=== PATIENT | female | born 1945 | race Two or more races ===

== ENCOUNTER 2019-09-04 16:03 | Inpatient (IN) | payer MEDICARE, MEDICAID ==
[~2019-09-04] VITALS: Ht 167.6 cm; Wt 77.1 kg
--- NOTE | 2019-09-04 16:10 | NUR ---
ED Nurse Note: patient brought into ED from home by ambulance RA [id number] due to weakness and dizziness and diaphoretic and sweaty, 40 minutes prior to arrival. 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 patient denies passing out. daughter at bedside.
[2019-09-04 16:14] VITALS: BP 114/50
--- NOTE | 2019-09-04 16:50 | NUR ---
ED Nurse Note: patient taken to CT scan.
--- NOTE | 2019-09-04 17:10 | Diagnostic Imaging Report ---
History: DIZZY Exam: CT HEAD Without Contrast Technique more: CTDI is 53.40 mGy and DLP is 948.30 mGy-cm. Technique more: One or more of the following dose reduction techniques were used: automated exposure control, adjustment of the mA and/or kV according to patient size, use of iterative reconstruction technique. 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 No intracranial hemorrhage or CT evidence of acute infarct. The ventricles are within limits and midline. The visualized paranasal sinuses, mastoids and orbits appear within limits. 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 No intracranial hemorrhage or CT evidence of acute infarct.
[2019-09-04 17:17] LABS: BASOPHILS % (AUTO) 0.9 % (0.0-2.0); EOSINOPHILS % (AUTO) 0.4 % (0.0-3.0); HEMATOCRIT 40.9 % (37.0-47.0); HEMOGLOBIN 13.9 G/DL (12.0-16.0); LYMPHOCYTES % (AUTO) 24.6 % (20.0-45.0); MEAN CORPUSCULAR VOLUME 89 FL (80-99); MONOCYTES % (AUTO) 4.4 % (1.0-10.0); NEUTROPHILS % (AUTO) 69.7 % (45.0-75.0); PLATELET COUNT 249 K/UL (150-450); RED BLOOD COUNT 4.58 M/UL (4.20-5.40); RED CELL DISTRIBUTION WIDTH 12.3 % (11.6-14.8); WHITE BLOOD COUNT 13.9 K/UL (4.8-10.8)
[2019-09-04 17:34] LABS: ALANINE AMINOTRANSFERASE 23 U/L (12-78); ALBUMIN 3.7 G/DL (3.4-5.0); ALKALINE PHOSPHATASE 58 U/L (46-116); ANION GAP 14 mmol/L (5-15); ASPARTATE AMINO TRANSFERASE 26 U/L (15-37); BILIRUBIN,TOTAL 0.5 MG/DL (0.2-1.0); BLOOD UREA NITROGEN 7 mg/dL (7-18); CALCIUM 8.5 MG/DL (8.5-10.1); CARBON DIOXIDE 27 MMOL/L (21-32); CHLORIDE 88 MMOL/L (98-107); CREATININE 0.8 MG/DL (0.55-1.30); SODIUM 128 MMOL/L (136-145)
[2019-09-04 17:35] LABS: POTASSIUM 2.6 MMOL/L (3.5-5.1)
[2019-09-04] MEDS: NS w/KCl 40mEq 1,000 ML IV SCH (17:53)
--- NOTE | 2019-09-04 18:29 | Emergency Room Report ---
History of Present Illness General Chief Complaint: Generalized Weakness Source: Patient Present Illness HPI 73-year-old female presents for dizziness. Brought in by EMS from home. Daughter states that patient was feeling dizzy today lasted for several minutes and subsided. States that she feels better. Daughter states that patient has hypertension and is recently changed her blood pressure medication. Denies chest pain or shortness of breath. Denies fevers or chills. No other aggravating relieving factors. Denies any other associated symptoms Allergies: Coded Allergies: No Known Allergies (Unverified , 09/04/19) COVID-19 Screening Contact w/high risk pt: No Recent Travel to affected area: No Experienced COVID-19 symptoms?: No COVID-19 Testing performed DAIRY CHEMIST: No Patient History Past Medical History: HTN Past Surgical History: none Pertinent Family History: none Social History: Denies: smoking, alcohol use, drug use Now: No Immunizations: UTD Reviewed Nursing Documentation: PMH: Agreed; PSxH: Agreed Nursing Documentation-PMH Hx Hypertension: Yes Review of Systems All Other Systems: negative except mentioned in HPI Physical Exam Vital Signs Date Time Temp Pulse Resp B/P (MAP) Pulse Ox O2 Delivery O2 Flow Rate FiO2 09/04/19 15:59 97.3 69 19 100/80 (87) 97 Room Air Sp02 EP Interpretation: reviewed, normal General Appearance: no apparent distress, alert, GCS 15, non-toxic Head: normocephalic, atraumatic Eyes: bilateral eye normal inspection, bilateral eye PERRL ENT: hearing grossly normal, normal pharynx, no angioedema, normal voice Neck: full range of motion, supple/symm/no masses Respiratory: chest non-tender, lungs clear, normal breath sounds, speaking full sentences Cardiovascular #1: regular rate, rhythm, no edema Cardiovascular #2: 2+ carotid (R), 2+ carotid (L), 2+ radial (R), 2+ radial (L) , 2+ dorsalis pedis (R), 2+ dorsalis pedis (L) Gastrointestinal: normal bowel sounds, non tender, soft, non-distended, no guarding, no rebound Rectal: deferred Genitourinary: normal inspection, no CVA tenderness Musculoskeletal: back normal, normal range of motion, gait/station normal, non- tender Neurologic: alert, motor strength/tone normal, oriented x3, sensory intact, responsive, speech normal Psychiatric: judgement/insight normal, memory normal, mood/affect normal, no suicidal/homicidal ideation Reflexes: 3+ bicep (R), 3+ bicep (L), 3+ tricep (R), 3+ tricep (L), 3+ knee (R) , 3+ knee (L) Skin: other - See nursing skin notes Lymphatic: no adenopathy Medical Decision Making Diagnostic Impression: Primary Impression: Episode of generalized weakness Additional Impressions: Hypokalemia Hyponatremia Dizziness ER Course Hospital Course 73-year-old female presents with dizziness and weakness Differential diagnoses include: GA/unstable angina, arrythmia, dehydration, CVA/ TIA Clinical course Patient placed on stretcher. on plodding operator. 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 States that patient has had this mass for many years now. Has been told not a candidate for surgery Given IV fluids. Given potassium Case discussed with Dr. Rogers and he agreed to accept the patient to his service for further care and support I. I feel this is a highly complex case requiring extensive working including EKG/Rhythm strip, Xray/CT/US, Blood/urine lab work, repeat exams while in ED, and administration of strong opiates/narcotics for pain control, admission to hospital or close patient follow up. Diagnosis -episode of generalized weakness, hypokalemia, hyponatremia, dizziness admitted to telemetry in serious condition Labs Test 09/04/19 16:55 White Blood Count 13.9 K/UL (4.8-10.8) Red Blood Count 4.58 M/UL (4.20-5.40) Hemoglobin 13.9 G/DL (12.0-16.0) Hematocrit 40.9 % (37.0-47.0) Mean Corpuscular Volume 89 FL (80-99) Mean Corpuscular Hemoglobin 30.3 PG (27.0-31.0) Mean Corpuscular Hemoglobin Concent 34.0 G/DL (32.0-36.0) Red Cell Distribution Width 12.3 % (11.6-14.8) Platelet Count 249 K/UL (150-450) Mean Platelet Volume 8.9 FL (6.5-10.1) Neutrophils (%) (Auto) 69.7 % (45.0-75.0) Lymphocytes (%) (Auto) 24.6 % (20.0-45.0) Monocytes (%) (Auto) 4.4 % (1.0-10.0) Eosinophils (%) (Auto) 0.4 % (0.0-3.0) Basophils (%) (Auto) 0.9 % (0.0-2.0) Sodium Level 128 MMOL/L (136-145) Potassium Level 2.6 MMOL/L (3.5-5.1) Chloride Level 88 MMOL/L (98-107) Carbon Dioxide Level 27 MMOL/L (21-32) Anion Gap 14 mmol/L (5-15) Blood Urea Nitrogen 7 mg/dL (7-18) Creatinine 0.8 MG/DL (0.55-1.30) Estimat Glomerular Filtration Rate > 60 mL/min (>60) Glucose Level 216 MG/DL (74-106) Calcium Level 8.5 MG/DL (8.5-10.1) Total Bilirubin 0.5 MG/DL (0.2-1.0) Aspartate Amino Transf (AST/SGOT) 26 U/L (15-37) Alanine Aminotransferase (ALT/SGPT) 23 U/L (12-78) Alkaline Phosphatase 58 U/L (46-116) Troponin I 0.007 ng/mL (0.000-0.056) Pro-B-Type Natriuretic Peptide 362 pg/mL (0-125) Total Protein 7.5 G/DL (6.4-8.2) Albumin 3.7 G/DL (3.4-5.0) Globulin 3.8 g/dL Albumin/Globulin Ratio 1.0 (1.0-2.7) EKG Diagnostic Results Rate: normal Rhythm: NSR ST Segments: other - LBBB ASA given to the pt in ED: No Rhythm Strip Diag. Results EP Interpretation: yes Rhythm: NSR, no PVC's, no ectopy Chest X-Ray Diagnostic Results Chest X-Ray Diagnostic Results : Chest X-Ray Ordered: Yes # of Views/Limited/Complete: 1 View Indication: Other - dizziness EP Interpretation: Yes Interpretation: no consolidation, no effusion, no pneumothorax, no acute cardiopulmonary disease Impression: No acute disease Electronically Signed by: Electronically signed by Darek Cabral MD CT/MRI/US Diagnostic Results CT/MRI/US Diagnostic Results : Imaging Test Ordered: CT Head Impression Procedure: CT Head no Contrast History: DIZZY Exam: CT HEAD Without Contrast Technique more: CTDI is 53.40 mGy and DLP is 948.30 mGy-cm. Technique more: One or more of the following dose reduction techniques were used: automated exposure control, adjustment of the mA and/or kV according to patient size, use of iterative reconstruction technique. 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 No intracranial hemorrhage or CT evidence of acute infarct. The ventricles are within limits and midline. The visualized paranasal sinuses, mastoids and orbits appear within limits. 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 No intracranial hemorrhage or CT evidence of acute infarct. Last Vital Signs Date Time Temp Pulse Resp B/P (MAP) Pulse Ox O2 Delivery O2 Flow Rate FiO2 09/04/19 16:14 97.3 86 19 114/50 96 Room Air Status: improved Disposition: ADMITTED INPATIENT Condition: Serious Referrals: NON PHYSICIAN (PCP) Darek Cabral MD Sep 04, 2019 18:29
--- NOTE | 2019-09-04 19:06 | NUR ---
HAND-OFF: Report given to Chu RN.ED Nurse Note:
--- NOTE | 2019-09-04 19:07 | NUR ---
ED Nurse Note: Report received from Michaela HAMMOND.
--- NOTE | 2019-09-04 19:10 | NUR ---
ED Nurse Note: Spoke to Ekta shoe caser and updated her of patient/relatives decision to transfer.
[2019-09-04 19:24] VITALS: BP 108/51
--- NOTE | 2019-09-04 20:43 | NUR ---
ED Nurse Note: Repeat K blood test withdrawn and sent
[2019-09-04 20:52] VITALS: BP 92/52
--- NOTE | 2019-09-04 20:53 | NUR ---
ED Nurse Note: Bp 92/50, patient is asymptomatic and resting in bed. Placed on trendelenburg position. ERMD notified
--- NOTE | 2019-09-04 21:29 | NUR ---
ED Nurse Note: BP 105/58 after infusing [id number] bolus.
[2019-09-04 21:31] VITALS: BP 105/52
--- NOTE | 2019-09-04 23:00 | NUR ---
ED Nurse Note: Report given to Benjamin HAMMOND
--- NOTE | 2019-09-04 23:15 | NUR ---
TRANSFER TO FLOOR: Patient transferred to Tele at 203-2 accompanied by RN via timoteo with air sampling and monitoring. Patient transported safely to the room. Belongings given to RN. Endorsed to RN on duty
[2019-09-05] VITALS: BP 101/45
--- NOTE | 2019-09-05 | NUR ---
NURSE NOTES: Pt arrived on unit from ER. Got report from Zeyad HAMMOND. Pt is from home accompanied by daughter who brought pt to hospital. Pt here for dizziness/hypokalemia. Initial assessment done. Pt is fully alert primarily Nauruan speaking. Pt is ambulatory but is weak sba needed uses bedside commode. Pt denies any pain. Denies any n/v or SOB. VS BP:101/45 T:97.9 HR:88 R:20 O2:98% on room air. No skin issues noted. Pt has L AC 20g w/ NSw/KCl 40 mEQ @100mL/hr. monitoring and evaluation advisor placed on pt running NSR w/BBB. No s/s of distress or discomfort noted. Pt resting in bed comfortable. Bed in low and locked position, call light within reach, bedside table within reach. Continue to monitor.
[2019-09-05 04:00] VITALS: BP 105/55
[2019-09-05] MEDS ORDERED: Morphine Sulfate 2mg/ml Inj(IV/IM USE ONLY) IVP PRN (04:00)
[2019-09-05] MEDS: NS w/KCl 40mEq 1,000 ML IV SCH (04:13)
--- NOTE | 2019-09-05 06:21 | Consultation ---
History of Present Illness General Chief Complaint: Generalized Weakness Present Illness Allergies: Coded Allergies: No Known Allergies (Unverified , 09/04/19) Patient History Healthcare decision maker Resuscitation status Advanced Directive on File Physical Exam Last 24 Hour Vital Signs Date Time Temp Pulse Resp B/P (MAP) Pulse Ox O2 Delivery O2 Flow Rate FiO2 09/05/19 04:00 94 09/05/19 04:00 97.7 85 18 105/55 (72) 97 09/05/19 01:31 Room Air 09/05/19 00:07 Room Air 09/05/19 00:00 97.9 88 20 101/45 (63) 98 09/05/19 00:00 80 09/04/19 23:37 98.0 82 20 110/78 98 Room Air 80 09/04/19 21:31 98.1 80 20 105/52 98 Room Air 82 80 09/04/19 20:52 98.0 80 18 92/52 98 Room Air 87 09/04/19 19:24 98.0 87 18 108/51 98 Room Air 09/04/19 16:14 97.3 86 19 114/50 96 Room Air 09/04/19 16:12 69 19 Room Air 09/04/19 15:59 97.3 69 19 100/80 (87) 97 Room Air Intake and Output 09/04/19 09/05/19 19:00 07:00 # Voids 2 Laboratory Tests Test 09/04/19 16:55 09/04/19 20:40 White Blood Count 13.9 K/UL (4.8-10.8) H Red Blood Count 4.58 M/UL (4.20-5.40) Hemoglobin 13.9 G/DL (12.0-16.0) Hematocrit 40.9 % (37.0-47.0) Mean Corpuscular Volume 89 FL (80-99) Mean Corpuscular Hemoglobin 30.3 PG (27.0-31.0) Mean Corpuscular Hemoglobin Concent 34.0 G/DL (32.0-36.0) Red Cell Distribution Width 12.3 % (11.6-14.8) Platelet Count 249 K/UL (150-450) Mean Platelet Volume 8.9 FL (6.5-10.1) Neutrophils (%) (Auto) 69.7 % (45.0-75.0) Lymphocytes (%) (Auto) 24.6 % (20.0-45.0) Monocytes (%) (Auto) 4.4 % (1.0-10.0) Eosinophils (%) (Auto) 0.4 % (0.0-3.0) Basophils (%) (Auto) 0.9 % (0.0-2.0) Sodium Level 128 MMOL/L (136-145) L Potassium Level 2.6 MMOL/L (3.5-5.1) *L 2.7 MMOL/L (3.5-5.1) *L Chloride Level 88 MMOL/L (98-107) L Carbon Dioxide Level 27 MMOL/L (21-32) Anion Gap 14 mmol/L (5-15) Blood Urea Nitrogen 7 mg/dL (7-18) Creatinine 0.8 MG/DL (0.55-1.30) Estimat Glomerular Filtration Rate > 60 mL/min (>60) Glucose Level 216 MG/DL (74-106) H Calcium Level 8.5 MG/DL (8.5-10.1) Total Bilirubin 0.5 MG/DL (0.2-1.0) Aspartate Amino Transf (AST/SGOT) 26 U/L (15-37) Alanine Aminotransferase (ALT/SGPT) 23 U/L (12-78) Alkaline Phosphatase 58 U/L (46-116) Troponin I 0.007 ng/mL (0.000-0.056) Pro-B-Type Natriuretic Peptide 362 pg/mL (0-125) H Total Protein 7.5 G/DL (6.4-8.2) Albumin 3.7 G/DL (3.4-5.0) Globulin 3.8 g/dL Albumin/Globulin Ratio 1.0 (1.0-2.7) Height (Feet): 5 Height (Inches): 6.00 Weight (Pounds): 170 Medications Current Medications Medications (Trade) Dose Ordered Sig/Chris Route PRN Reason Start Time Stop Time Status Last Admin Dose Admin Acetaminophen (Tylenol) 650 mg Q6HR PRN ORAL TEMP>100.5 09/04/19 22:30 Morphine Sulfate (Morphine Sulfate) 2 mg Q4H PRN IVP For Pain 09/05/19 04:00 09/12/19 03:59 Ondansetron HCl (Zofran) 4 mg Q6HR PRN IVP Nausea & Vomiting 09/04/19 22:30 Potassium Chloride/Sodium Chloride 1,000 ml @ 100 mls/hr Q10H IV 09/04/19 18:00 10/04/19 17:59 09/05/19 04:13 Assessment/Plan Assessment/Plan: Oncology Consultation REQ MD Micheal Rogers RFC: suprasellar mass DOS 09/05/2019 ID 73-year-old female presents for dizziness. Brought in by EMS from home. Daughter states that patient was feeling dizzy today lasted for several minutes and subsided. States that she feels better. Daughter states that patient has hypertension and is recently changed her blood pressure medication. Denies chest pain or shortness of breath. Denies fevers or chills. No other aggravating relieving factors. Denies any other associated symptoms, is ethiopeian speaking and ct imaging brain reviewed, thus onco consulted. Allergies: No Known Allergies (Unverified , 09/04/19) COVID-19 Screening Contact w/high risk pt: No Recent Travel to affected area: No Experienced COVID-19 symptoms?: No COVID-19 Testing performed STICKER MACHINE OPERATOR: No Patient History Past Medical History: HTN Past Surgical History: none Pertinent Family History: none Social History: Denies: smoking, alcohol use, drug use Now: No Immunizations: UTD Reviewed Nursing Documentation: PMH: Agreed; PSxH: Agreed Review of Systems All Other Systems: negative except mentioned in HPI PE Vitals: reviewed, normal General Appearance: no apparent distress, non-toxic Heent: hearing grossly normal, normal pharynx, no angioedema, normal voice Resp: chest non-tender, lungs clear, normal breath sounds Cardiovascular: regular rate, rhythm, no edema GI: normal bowel sounds, non tender, soft Rectal: deferred Genitourinary: normal inspection, no CVA tenderness Musculoskeletal: back normal, normal range of motion Skin: other - See nursing skin notes Labs: noted Imaging EKG- NSR, LBBB interpreted by me Chest x-ray- no acute process 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 --> is likely contributing to nausea, dizziness, symptoms --> consider to obtain neuro eval as well as potential neurosurgical resection --> as per neuro consider to send for prolactin, IGF-I (to examine possible GH excess), TSH, and free T4 (to check for central hyperthyroidism) --> Also for hypercortisolism 24-hour urine-free cortisol, and the overnight (1 mg) dexamethasone suppression test potential tests --> given larger than 10mm, then surgical approach to be considered # Leukocytosis likely reactive to above process --> r/o infection, cxr cultures --> per id --> smear is noted # Episode of generalized weakness # Hypokalemia # Hyponatremia # Dizziness # Dehydration --> per renal, ivfs Appreciate consultation and dw Eric Nelson MD Sep 05, 2019 06:21
[2019-09-05 07:09] LABS: ALANINE AMINOTRANSFERASE 20 U/L (12-78); ALBUMIN 3.2 G/DL (3.4-5.0); ALBUMIN/GLOBULIN RATIO 0.9 (1.0-2.7); ALKALINE PHOSPHATASE 51 U/L (46-116); ANION GAP 9 mmol/L (5-15); ASPARTATE AMINO TRANSFERASE 18 U/L (15-37); BILIRUBIN,TOTAL 0.5 MG/DL (0.2-1.0); BLOOD UREA NITROGEN 4 mg/dL (7-18); CALCIUM 8.4 MG/DL (8.5-10.1); CARBON DIOXIDE 27 MMOL/L (21-32); CHLORIDE 100 MMOL/L (98-107); CREATININE 0.7 MG/DL (0.55-1.30); POTASSIUM 3.4 MMOL/L (3.5-5.1); SODIUM 136 MMOL/L (136-145)
[2019-09-05 07:20] LABS: BASOPHILS % (AUTO) 0.6 % (0.0-2.0); EOSINOPHILS % (AUTO) 0.3 % (0.0-3.0); HEMATOCRIT 41.6 % (37.0-47.0); HEMOGLOBIN 13.7 G/DL (12.0-16.0); LYMPHOCYTES % (AUTO) 23.9 % (20.0-45.0); MEAN CORPUSCULAR VOLUME 91 FL (80-99); MONOCYTES % (AUTO) 5.8 % (1.0-10.0); NEUTROPHILS % (AUTO) 69.4 % (45.0-75.0); PLATELET COUNT 267 K/UL (150-450); RED BLOOD COUNT 4.55 M/UL (4.20-5.40); RED CELL DISTRIBUTION WIDTH 11.5 % (11.6-14.8); WHITE BLOOD COUNT 10.6 K/UL (4.8-10.8)
--- NOTE | 2019-09-05 07:40 | NUR ---
HAND-OFF: Report given to Yahaira HAMMOND.
[2019-09-05 08:00] VITALS: BP 107/53
--- NOTE | 2019-09-05 08:30 | NUR ---
NURSE NOTES: Received report from STEPHANY Alexander. Pt A/O x4. No s/s of acute respiratory and cardiac disease. Currently on room air. IVF currently running on left AC 20G, patent and asymptomatic. Bed in low position, side rails up x2 and call light within reach. Will continue to monitor.
--- NOTE | 2019-09-05 09:50 | Cardiac Electrophysiology PN ---
Subjective Subjective [id number] Objective Last 24 Hour Vital Signs Date Time Temp Pulse Resp B/P (MAP) Pulse Ox O2 Delivery O2 Flow Rate FiO2 09/05/19 08:00 97.6 89 20 107/53 (71) 96 09/05/19 04:00 94 09/05/19 04:00 97.7 85 18 105/55 (72) 97 09/05/19 01:31 Room Air 09/05/19 00:07 Room Air 09/05/19 00:00 97.9 88 20 101/45 (63) 98 09/05/19 00:00 80 09/04/19 23:37 98.0 82 20 110/78 98 Room Air 80 09/04/19 21:31 98.1 80 20 105/52 98 Room Air 82 80 09/04/19 20:52 98.0 80 18 92/52 98 Room Air 87 09/04/19 19:24 98.0 87 18 108/51 98 Room Air 09/04/19 16:14 97.3 86 19 114/50 96 Room Air 09/04/19 16:12 69 19 Room Air 09/04/19 15:59 97.3 69 19 100/80 (87) 97 Room Air Intake and Output 09/04/19 09/05/19 19:00 07:00 # Voids 2 Laboratory Tests Test 09/04/19 16:55 09/04/19 20:40 09/05/19 05:42 White Blood Count 13.9 K/UL (4.8-10.8) H 10.6 K/UL (4.8-10.8) Red Blood Count 4.58 M/UL (4.20-5.40) 4.55 M/UL (4.20-5.40) Hemoglobin 13.9 G/DL (12.0-16.0) 13.7 G/DL (12.0-16.0) Hematocrit 40.9 % (37.0-47.0) 41.6 % (37.0-47.0) Mean Corpuscular Volume 89 FL (80-99) 91 FL (80-99) Mean Corpuscular Hemoglobin 30.3 PG (27.0-31.0) 30.1 PG (27.0-31.0) Mean Corpuscular Hemoglobin Concent 34.0 G/DL (32.0-36.0) 32.9 G/DL (32.0-36.0) Red Cell Distribution Width 12.3 % (11.6-14.8) 11.5 % (11.6-14.8) L Platelet Count 249 K/UL (150-450) 267 K/UL (150-450) Mean Platelet Volume 8.9 FL (6.5-10.1) 9.4 FL (6.5-10.1) Neutrophils (%) (Auto) 69.7 % (45.0-75.0) 69.4 % (45.0-75.0) Lymphocytes (%) (Auto) 24.6 % (20.0-45.0) 23.9 % (20.0-45.0) Monocytes (%) (Auto) 4.4 % (1.0-10.0) 5.8 % (1.0-10.0) Eosinophils (%) (Auto) 0.4 % (0.0-3.0) 0.3 % (0.0-3.0) Basophils (%) (Auto) 0.9 % (0.0-2.0) 0.6 % (0.0-2.0) Sodium Level 128 MMOL/L (136-145) L 136 MMOL/L (136-145) Potassium Level 2.6 MMOL/L (3.5-5.1) *L 2.7 MMOL/L (3.5-5.1) *L 3.4 MMOL/L (3.5-5.1) L Chloride Level 88 MMOL/L (98-107) L 100 MMOL/L (98-107) Carbon Dioxide Level 27 MMOL/L (21-32) 27 MMOL/L (21-32) Anion Gap 14 mmol/L (5-15) 9 mmol/L (5-15) Blood Urea Nitrogen 7 mg/dL (7-18) 4 mg/dL (7-18) L Creatinine 0.8 MG/DL (0.55-1.30) 0.7 MG/DL (0.55-1.30) Estimat Glomerular Filtration Rate > 60 mL/min (>60) > 60 mL/min (>60) Glucose Level 216 MG/DL (74-106) H 161 MG/DL (74-106) H Calcium Level 8.5 MG/DL (8.5-10.1) 8.4 MG/DL (8.5-10.1) L Total Bilirubin 0.5 MG/DL (0.2-1.0) 0.5 MG/DL (0.2-1.0) Aspartate Amino Transf (AST/SGOT) 26 U/L (15-37) 18 U/L (15-37) Alanine Aminotransferase (ALT/SGPT) 23 U/L (12-78) 20 U/L (12-78) Alkaline Phosphatase 58 U/L (46-116) 51 U/L (46-116) Troponin I 0.007 ng/mL (0.000-0.056) 0.018 ng/mL (0.000-0.056) Pro-B-Type Natriuretic Peptide 362 pg/mL (0-125) H Total Protein 7.5 G/DL (6.4-8.2) 6.9 G/DL (6.4-8.2) Albumin 3.7 G/DL (3.4-5.0) 3.2 G/DL (3.4-5.0) L Globulin 3.8 g/dL 3.7 g/dL Albumin/Globulin Ratio 1.0 (1.0-2.7) 0.9 (1.0-2.7) L Thyroid Stimulating Hormone (TSH) 1.725 uiU/mL (0.358-3.740) Free Thyroxine 1.12 NG/DL (0.76-1.46) Prolactin Pending Insulin-like Growth Factor I Pending Reynaldo Alberto MD Sep 05, 2019 09:50
--- NOTE | 2019-09-05 10:13 | Diagnostic Imaging Report ---
Procedure: XRAY Chest 1v Reason for study: Dizziness. Cough. Comparison films: None. FINDINGS: There is a cardiac pacer in place. Vascularity is normal. The lung nam are clear bilaterally. Cardiac and mediastinal silhouette are within normal limits. CP angles are sharp. The bony thorax appear unremarkable. IMPRESSION: NO ACUTE CARDIOPULMONARY DISEASE.
--- NOTE | 2019-09-05 10:38 | Consultation ---
Consult Note Consult Note I was asked to evaluate the patient at the request of Dr. Micheal Rogers for electrolyte abnormalities and fluid management 73-year-old female presents for dizziness. Brought in by EMS from home. Daughter states that patient was feeling dizzy today lasted for several minutes and subsided. States that she feels better. Daughter states that patient has hypertension and is recently changed her blood pressure medication. Denies chest pain or shortness of breath. Denies fevers or chills. No other aggravating relieving factors. Denies any other associated symptoms No Known Allergies (Unverified , 09/04/19) COVID-19 Screening Contact w/high risk pt: No Recent Travel to affected area: No Experienced COVID-19 symptoms?: No COVID-19 Testing performed TIRE SERVICER: No Past Medical History: HTN Hx Hypertension: Yes, sellar mass with suprasellar extension , known and old condition Patient does not speak Belizean could not be interviewed Data reviewed Patient examined Assessment/Plan Hypokalemia, hyponatremia on admission. 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 Most likely contributing to nausea and dizziness Reactive leukocytosis Hydrate Monitor renal parameters Adjust blood pressure medications as the patient somewhat hypotensive Per orders Per consultants, discussed with news writer Sergei Guzman MD Sep 05, 2019 10:38
--- NOTE | 2019-09-05 10:51 | NUR ---
*-* NO INSURANCE INFORMATION IN THE BAR UNABLE TO SEND CLINICAL OR REVIEWS *-*
[2019-09-05 12:00] VITALS: BP 104/53
[2019-09-05] MEDS ORDERED: Docusate 100mg cap ORAL SCH (13:00)
--- NOTE | 2019-09-05 13:34 | NUR ---
CASE MANAGEMENT:REVIEW 73 YR OLD FEMALE BIBA FROM HOME CC; GENERALIZED WEAKNESS SI: DIZZINESS. HYPOKALEMIA.GENERALIZED WEAKNESS 97.3 69 19 100/80 97% ON RA WBC+13.9 NA-128 K-2.6 IS: 500CC NS BOLUS X2 IVF+KCL IV PEPCID PO KCL CT HEAD CHEST XRAY : TO TELEMETRY UNIT DCP: FROM HOME
--- NOTE | 2019-09-05 13:59 | NUR ---
TRANSFER UPDATE RECEIVED CALL FROM REFINERY OPERATOR HELPER WITH [facility] STATING THEY NEVER GAVE AUTHORIZATION TO ADMIT THIS PATIENT. [facility] IS GOING TO CALL DR DONOVAN FOR MD TO MD CONVERSATION.PHON NUMBER WAS PROVIDED THIS REFINERY OPERATOR HELPER LEFT A DETAILED MESSAGE FOR DR DONOVAN INCLUDING THE PHONE NUMBER FOR THE HEALTH PLAN'S PHYSICIAN DR PELAEZ T: [phone] Addendum: 09/05/19 at 1411 by TERRI OSHEA LVN LVN DR DONOVAN RESPONDED AND GAVE ORDER TO TRANSFER PATIENT DISCHARGE/TRANSFER ORDER ENTERED UNDER OTHER NURSING ORDERS Addendum: 09/05/19 at 1540 by TERRI OSHEA LVN LVN SPOKE WITH [facility] KAY T: [phone] PHYSICIANS HAVEN'T SPOKEN YET INFORMED KAY THAT WE HAD A ORDER TO TRANSFER TO CONTRACTED FACILITY, [facility] PROVIDED KAY WITH PATIENT'S ROOM NUMBER AND NUMBER TO NURSES STATION
[2019-09-05 16:00] VITALS: BP 112/58
--- NOTE | 2019-09-05 16:28 | NUR ---
*-* INSURANCE *-* ALL AVAILABLE CLINICALS HAVE BEEN FAXED TO: [facility] Ref#[id number] CM: Manish ph# [phone] ext [phone] fax [phone] & KENNY Ref# [id number] ph#[phone] fax#[phone]
--- NOTE | 2019-09-05 18:03 | NUR ---
NURSE NOTES: Pt needed to be transferred to [facility] due to insurance reason. Informed patient and daughter and they don't want to be transferred to [facility] and be discharged instead. Spoke with Dr. Isaac and he spoke with the patient's daughter. He wants clearance from Cuprous Chloride Operator first before discharge. Spoke with Dr. Guzman and he cleared pt to be discharged or transferred. Informed Dr. Isaac and he ordered for pt to be discharged home. Will continue with discharge papers.
--- NOTE | 2019-09-05 19:23 | NUR ---
NURSE NOTES: Pt discharge home. Removed saline lock and telemetry box. No s/s of acute respiratory and cardiac distress. Pt picked up by daughter via private vehicle.
--- NOTE | 2019-09-05 20:00 | Consultation ---
DATE OF CONSULTATION: 09/05/2019 CARDIOLOGY CONSULTATION REFERRING PHYSICIAN: Micheal Rogers D.O. REASON FOR CONSULTATION: Dizziness in a patient with electrolyte abnormality as well as hypertension and pacemaker. HISTORY OF PRESENT ILLNESS: The patient is a 73-year-old lady with history of hypertension and history of Medtronic pacemaker about 2 years ago as well as underlying left bundle-branch block, who was brought in by paramedics from home as daughter stated that the patient has been feeling dizzy. The patient's blood pressure medication was recently changed. The patient denies any chest pain or shortness of breath. 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 The patient also was found to have a CT of the brain that shows a sellar mass with suprasellar extension. REVIEW OF SYSTEMS: Negative other than what is mentioned in history of present illness. PAST MEDICAL HISTORY: As mentioned above. FAMILY HISTORY: Noncontributory. SOCIAL HISTORY: She lives at home. Does not smoke or drink alcohol. PHYSICAL EXAMINATION: VITAL SIGNS: Blood pressure of 107/53, pulse is 89, respirations 20, temperature 97.6. HEAD AND NECK: No JVD or carotid bruits. LUNGS: Clear. CARDIOVASCULAR: Shows regular S1 and S2 with no gallop. Pacemaker in the left subclavian. ABDOMEN: Soft. EXTREMITIES: No pitting edema. LABORATORY AND DIAGNOSTIC DATA: Labs show white count of 10.7, hemoglobin 13.7, hematocrit of 41.6, and platelets of 267. Sodium 136, potassium initially was 2.7 that improved to 3.4, BUN of 4, creatinine of 0.7, and glucose of 161. First troponin is negative. ASSESSMENT AND PLAN: 1. Dizziness. The patient's blood pressure is currently stable. The first troponin is negative. We will completely rule out TN protocol and get an echocardiogram for further evaluation. We will try to interrogate the pacemaker, but the patient currently remains in sinus rhythm and ventricular paced. This could be due to the patient's suprasellar mass that is being evaluated by Dr. Isaac and Neurology. 2. Status post Medtronic pacemaker. We will try to interrogate the pacemaker for further evaluation. 3. Hypertension. Resume the patient's antihypertensive medications with hold parameters. 4. Severe hypokalemia, was replaced. 5. Hyponatremia. 6. 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 That is largely contributing to the patient's nausea and dizziness symptoms. Neuro eval is pending further evaluation by Dr. Isaac. Thank you very much for allowing me to participate in the care of this patient. Please do not hesitate to contact me for any questions regarding my evaluation. Reynaldo Alberto M.D. DR: TOBIAS JOB#: [id number] CC:
--- NOTE | 2019-09-05 21:15 | History and Physical Report ---
DATE OF ADMISSION: 09/04/2019 DATE AND TIME SEEN: 09/05/2019 at 1 p.m. CONSULTANTS: 1. Reilly Isaac MD. 2. Renny Aaron MD. 3. Reynaldo Alberto MD. 4. Sergei Guzman MD. CHIEF COMPLAINT: Dizziness, hypokalemia, hyponatremia, suprasellar mass. BRIEF HISTORY: This is a 73-year-old female who lives at home, presents to [facility] with above-mentioned diagnoses, admitted to telemetry. Currently, calm in bed, sleepy, not talking much. REVIEW OF SYSTEMS: Unavailable. PAST MEDICAL HISTORY: Includes dizziness, weakness, and suprasellar mass. PAST SURGICAL HISTORY: Unknown. MEDICATIONS: Losartan, nifedipine, pantoprazole, potassium, morphine, Zofran, Tylenol, famotidine. ALLERGIES: Denies. SOCIAL HISTORY: Unable to obtain secondary to patient is very sleepy. PHYSICAL EXAMINATION: GENERAL: Sleeping in bed, not talking much. VITAL SIGNS: Temperature 97, pulse 89, respirations 20, blood pressure 104/53. CARDIOVASCULAR: S1, S2. No murmur. LUNGS: Distant and clear. ABDOMEN: Positive bowel sounds. Nontender, nondistended. EXTREMITIES: No cyanosis or edema. NEUROLOGIC: Patient moves all extremities, slightly weak. LABORATORY DATA: Labs at this time show initial white count 13.9, now CBC is normal. BMP shows potassium 3.4, glucose 161, hyperglycemia. Troponin 0.018. Albumin 3.2. ASSESSMENT: 1. Dizziness. 2. Hypokalemia. 3. Hyponatremia. 4. Hypertension. 5. Suprasellar mass. 6. Malnutrition. 7. Hyperglycemia. 8. Weakness. PLAN: 1. PT, dietary eval. 2. CBC, BMP in the morning. 3. Resume home medications. 4. Blood pressure control. 5. I will continue to follow this patient. Micheal Rogers D.O. DR: REZA JOB#: [id number] CC:
[2019-09-06] MEDS ORDERED: Losartan 50mg tab ORAL SCH ×2 (09:00)
--- NOTE | 2019-09-06 13:11 | NUR ---
*-* INSURANCE *-* ALL AVAILABLE CLINICALS HAVE BEEN FAXED TO:(no discharge summary not in the system) [facility] Ref#[id number] CM: Manish ph# [phone] ext [phone] fax [phone] & KENNY Ref# [id number] ph#[phone] fax#[phone]
--- NOTE | 2019-09-08 16:43 | Discharge Summary ---
Discharge Summary Discharge Summary _ DATE OF ADMISSION: 09/04/2019 DATE OF DISCHARGE: 09/05/2019 DISCHARGED BY: Dr Rogers REASON FOR ADMISSION: 73 years old female with past medical history of hypertension, presented to emergency department by paramedics from home due to dizziness. Patient felt dizzy for several minutes , which later subsided. Daughter stated that patient recently changed to another blood pressure medication. Patient denied chest pain or shortness of breath. No fever or chills. Vital signs were stable. Laboratory work-up revealed leukocytosis WBC 13.9, stable hemoglobin , hematocrit and platelet count. Sodium 128, potassium 2.6 , chloride 88. BUN 7, creatinine 0.8. Glucose 216. Stable LFT. Troponin 0.007 , pro BNP 362. EKG revealed sinus rhythm with left bundle branch block. Albumin 3.7 . Chest x-ray revealed no acute cardiopulmonary pathology. CT of the head revealed no evidence of intracranial hemorrhage or CT evidence of acute infarct. Sellar mass with suprasellar extension measuring 2.3 x 2.2 x 2.3 cm coronal 15 axial 10 with localized mass-effect noted. Patient subsequently admitted to telemetry floor for further management. CONSULTANTS: [employer] redevelopment site manager Dr. Hines assisted living nursing director Dr. Guzman claims vice president/oncologist Dr. Isaac [facility] COURSE: Patient admitted to telemetry floor. Echocardiogram demonstrated preserved ejection fraction of 60%. No evidence of wall motion abnormality. No evidence of left ventricular hypertrophy. Right ventricular systolic pressure of 31. Serial troponin negative . EKG revealed no acute ischemic changes. Patient was ruled out for acute MO. Pacemaker to be interrogated as outpatient. Home antihypertensive medications were resumed with holding parameters. Storage Architect followed. Patient was hydrated , renal parameters were closely monitored. Potassium was replaced Patient was on IV hydration . Both sodium and potassium stabilized. Leukocytosis was most likely reactive Sellar mass with localized mass-effect noted on CT of the head, was largely contributing to the patient's nausea and dizziness symptoms. Subsequently claims vice president oncologist followed. Oncologist recommended neurology evaluation for potential neurosurgical resection. Prolactin was mildly elevated; insulin-like growth factor was low. TSH and free T4 were within normal limits. Given that the mass was more than 10 mm recommended to consider surgical approach. Symptomatic treatment provided . Patient clinically stabilized , dizziness resolved . Patient wanted to go home. Outpatient follow-up for further work-up for sellar mass and pacemaker interrogation, Due to rapid and unexpected improvement in patient 's condition, patient was discharged in 1 day. FINAL DIAGNOSES: Dizziness Sellar mass with suprasellar extension with localized mass-effect Status post Medtronic pacemaker Hypertension Severe hypokalemia Hyponatremia Dehydration Malnutrition DISCHARGE MEDICATIONS: See Medication Reconciliation list. DISCHARGE INSTRUCTIONS: Patient was discharged home. Outpatient follow-up with brownfield redevelopment site manager for pacemaker interrogation. Outpatient follow-up with neurologist for work-up of sellar mass. I have been assigned to dictate discharge summary for this account. I was not involved in the patient's management. Jia Agustin NP Sep 08, 2019 16:43
--- NOTE | 2019-09-09 12:48 | NUR ---
*-* INSURANCE *-* DISCHARGE SUMMARY HAS BEEN FAXED [facility] Ref#[id number] CM: Manish ph# [phone] ext [phone] fax [phone] & KENNY Ref# [id number] ph#[phone] fax#[phone]
== END 2019-09-05 19:20 | disposition home or self-care (01) | DRG 58 ==
LOC: EDBD 16:03 → EMR 16:40 → 2E 22:15 → EDBEDREQ 22:19
DX: G93.89 Other specified disorders of brain (principal); E87.6 Hypokalemia; E86.0 Dehydration; E87.1 Hypo-osmolality and hyponatremia; E46 Unspecified protein-calorie malnutrition; I10 Essential (primary) hypertension; R73.9 Hyperglycemia, unspecified; Z95.0 Presence of cardiac pacemaker; R42 Dizziness and giddiness
CPT/HCPCS: 36415; 70450; 71045; 80053; 83880; 84132; 84146; 84305; 84439; 84443; 84484; 85025; 93005; 93306; 96365; 96366; 96375; 99285; J8499